=== PATIENT | female | born 1970 | race Caucasian/White ===

== ENCOUNTER 2021-01-24 18:13 | Emergency (ER) | payer BC, SELFPAY ==
[2021-01-24 18:27] VITALS: BP 187/105; PULSE 99; RESP 16; TEMP 37.2; O2SAT 95
--- NOTE | 2021-01-24 18:49 | ED.GENADUL_ITS ---
Discharge Plan Disposition Patient Disposition: HOME Condition: Stable Discharge Details Clinical Impression: Insect bite, Cellulitis Primary Care Provider: Yakelin,Local ED Provider: Heather Mckinney Home Meds and New Rx's Prescriptions: New cephalexin 500 mg capsule 500 mg PO Q6H 10 Days Qty: 40 RF: 0 No Action escitalopram oxalate [Lexapro] 10 MG tablet 20 mg PO DAILY RF: 0 Discharge Instructions Instructions: Cellulitis (ED) Additional Instructions: Elevate your foot and stay off as much as possible Yogurt daily while on antibiotic Compression Take antibiotic as prescribed Blood pressure recheck by her primary care physician, return earlier with worsening pain, fever, chills, or should you have any new or worsening complaints Medical Decision Making Patient started on antibiotic She is nontoxic without any evidence of systemic infection She will elevate her foot and take the antibiotic as prescribed She will need recheck in 48 hours Patient was aware that blood pressure was elevated But she will have this rechecked by her primary care physician, she is as ymptomatic with this finding She has neurovascularly intact, she has no calf swelling or tenderness Patient is given low threshold to return with new or worsening complaints did consider DVT, no clinical findings consistent with this Medical Records Medical records reviewed: Yes I reviewed the patient's medical records. Lab Data Lab results reviewed: Yes I reviewed the patient's lab results. HPI General Mode of arrival: ambulatory . Date/Time Provider Initiated Documentation: 01/24/21 18:38 . Limitations to Documentation: no limitations . Information obtained by: patient . HPI Narrative: This 50-year-old female prese nts with redness and pain to her right foot. She states she was bitten by several mosquitoes on Monday. Today she noted some swelling and increased pain. She denies any history of diabetes. She is not been on antibiotics. She denies any fever or chills. She denies any additional complaints at this time. Related Data Home Medications Medication Instructions Recorded Confirmed escitalopram oxalate [Lexapro] 20 mg PO DAILY 04/20/15 01/24/21 cephalexin 500 mg PO Q6H 10 Days #40 cap 01/24/21 Previous Rx's Medication Instructions Recorded cephalexin 500 mg PO Q6H 10 Days #40 cap 01/24/21 Allergies Allergy/AdvReac Type Severity Reaction Status Date / Time ofloxacin [From Floxin] Allergy Severe Anaphylaxsi Unverified 01/24/21 18:34 s General Stated Complaint: Cellulitis VIPIN: 4 Review of Systems All systems reviewed & are unremarkable except as noted in HPI and below PFSH Social History Smoking/Tobacco Use Status: Former Tobacco Use Smoking risk assessment performed?: Yes Drug use: Never Substance use type: does not use Exam Extrem Other: Right foot with swelling, imaging fourth and fifth digit and webspace, there is an area of erythema with a contact dermatitis, there is no fluctuance, there is no lymphangitis, cellulitis to the dorsal aspect of her foot, does not circumferential, distal pulses are intact, neurovascularly intact Course Vital Signs Vital signs: Vital Signs Temperature 37.2 C 01/24/21 18:27 Pulse 99 H 01/24/21 18:27 Respiratory Rate 16 01/24/21 18:27 Blood Pressure 187/105 H 01/24/21 18:27 Pulse Oximetry 95 01/24/21 18:27 Temperature 37.2 C 01/24/21 18:27 Temperature Source Tympanic 01/24/21 18:27 Pulse 99 H 01/24/21 18:27 Respiratory Rate 16 01/24/21 18:27 Respiratory Effort Non-Labored 01/24/21 18:27 Blood Pressure 187/105 H 01/24/21 18:27 Blood Pressure Position Supine 01/24/21 18:27 Pulse Oximetry 95 01/24/21 18:27 Oxygen Delivery Method Room Air 01/24/21 18:27 Oxygen Flow Rate 0 01/24/21 18:27 Pain Level 6 01/24/21 18:27
[2021-01-24] MEDS: Cephalexin 500 MG CAP, 4 CAPS/BTL PO (18:50)
[2021-01-24] MEDS: Ibuprofen 600 MG TAB (18:50)
[2021-01-24 19:00] VITALS: BP 165/105; PULSE 94; RESP 16; O2SAT 95
== END 2021-01-24 19:15 | disposition home or self-care (01) ==
PROVIDERS: Emergency Provider Physician Assistant
DX: S90.861A Insect bite (nonvenomous), right foot, initial encounter (principal); W57.XXXA Bitten or stung by nonvenomous insect and other nonvenomous arthropods, initial encounter; L03.115 Cellulitis of right lower limb
CPT/HCPCS: 99283